=== PATIENT | male | born 1955 | race Caucasian/White ===

== ENCOUNTER 2016-04-28 01:39 | Inpatient (IN) | payer OTHER ==
[~2016-04-28] VITALS: Ht 167.6 cm; Wt 92.5 kg
[~2016-04-28 01:39] MED LIST: ABILIFY10 M1; GABAPENTIN300 M2; MELOXICAM15 M1; PROZAC40 M1 PO
[2016-04-28] MEDS ORDERED: MIRALAX17 G1 PO (10:42)
[2016-04-28] MEDS ORDERED: MS CONTIN30 M1 PO (10:42)
[2016-04-28] MEDS ORDERED: DILAUDID4 M1 PO (10:42)
[2016-04-28] MEDS ORDERED: COLACE100 M1 PO (10:42)
[2016-04-28] MEDS ORDERED: PRILOSEC OTC20 M1 PO (10:42)
[2016-04-28] MEDS ORDERED: ASPIRIN EC325 M2 PO (10:42)
--- NOTE | 2016-04-28 10:45 | Admission Core Measures ---
Admission Meds I reviewed the following Meds: Current Medications Sig/Moy Start time Last Medication Dose Stop Time Status Admin Acetaminophen 975 MG ONCE 04/28 0000 NR (Tylenol) 04/28 2358 Aripiprazole 10 MG DAILY 04/28 1000 AC (Abilify) Cefazolin Sodium 2,000 MG ONCE 04/28 0000 NR (Kefzol-Ancef Inj) 04/28 2358 Fluoxetine HCl 80 MG AT BEDTIME 04/28 2200 AC (Prozac) Gabapentin 300 MG DAILY 04/28 1000 AC (Neurontin) Oxycodone HCl 10 MG ONCE 04/28 0000 NR (Roxicodone) 04/28 2358 Ropivacaine 500 ML ONCE ONE 04/28 0830 AC (NAROPIN) 04/30 0209 ON-Q Ball 1 BAG Acute Coronary Syndrome Inclusion Criteria ACS Diagnosis No Inpatient Core Measures LDL Reminder: If No, please order W/I first 24hr of stay Congestive Heart Failure Inclusion Criteria CHF Diagnosis No Cerebrovascular accident Inclusion Criteria CVA/TIA Diagnosis No Inpatient Core Measures Bedside Swallow Eval Reminder: If BSE failed, place ST order Antithrombotic Reminder: Order Antithrombotic Medication by end of day 2 Antithrombotic Reminder: Document Reason Antithrombotic Not ordered by end of day 2 AFIB/Flutter Reminder: If Present, add to problem list AFIB/Flutter Reminder: Order Anticoag Medication for pts with AFIB/Flutter Atherosclerosis Reminder: If Present, add to problem list LDL Reminder: If No, please order W/I first 24hr of stay PT Order Reminder: If No, please order Venous thromboembolism Inpatient Core Measures VTE Risk Factors: Age > 40, Surgery VTE Prophylaxis [facility] prophylaxis d/t No contraindications No VTE Pharm Prophylaxis d/t No contraindications Inclusion Criteria - Per Current guidelines, there needs to be overlap - treatment for the first 5 days of Warfarin therapy. - Parenteral Anticoagulation (IV or SC) needs to be - given along with Warfarin therapy. VTE Diagnosis No VTE Type NONE VTE Confirmed by (Test) NONE Problem List As ranked by this Provider includes Assessment & Plan 1. Unilateral primary osteoarthritis, right knee HOME MEDS Home Med List Aspirin (Ecotrin*) 325 MG TABLET.DR 1 TAB PO BID ANTICOAGULATION Docusate Sodium (Colace) 100 MG CAPSULE 1 CAP PO BID CONSTIPATION Fluoxetine HCl (Prozac) 40 MG CAPSULE 2 TAB PO NIGHTLY DEPRESSION (Reported) Hydromorphone HCl (Dilaudid) 4 MG TABLET 1-2 TAB PO Q4-6H PRN PAIN Morphine Sulfate (Ms Contin) 30 MG TABLET.ER 1 TAB PO BID PAIN Omeprazole Magnesium (Prilosec Otc) 20 MG TABLET.DR 1 TAB PO DAILY GI PROTECTION Polyethylene Glycol 3350 (Miralax) 17 GRAM POWD.PACK 1 PAC PO DAILY CONSTIPATION
--- NOTE | 2016-04-28 10:45 | Patient Discharge Instructions ---
Discharge Instructions General Discharge Information You were seen/treated for: Right knee pain You had these procedures: Right total knee replacement Watch for these problems: Increasing pain, redness, warmth, swelling. Drainage of any type from incision. Inability to bear weight on right leg. Fever greater than 101.5. Do not soak the wound: No No bath, but you may shower: Yes Other wound care: Keep wound clean and dry Special Instructions: Incision: Dry dressing. May shower. No baths. No ointments of any kind. Ice as needed. Bowel regimen: Colace and or MiraLAX Weight-bearing as tolerated Follow-up with Dr. Lozoya in 6 weeks. Call office for fevers greater than 101.5, excessive drainage or inability to bear weight on operative extremity. Visiting nurse will change dressing. Diet Continue normal diet: Yes Recommended Diet: Regular Additional DIET Information: Advance as tolerated Activity Full Activity/No Limits: No Activity Self Limited: Yes Pounds, do NOT lift more than: 10 Additional ACTIVITY Info: Weight-bear as tolerated on right leg Acute Coronary Syndrome Inclusion Criteria At DC or during hospital stay patient has or had the following: ACS DIAGNOSIS No Discharge Core Measures Meds if any: Prescribed or Continued at Discharge Meds if any: NOT Prescribed or Continued at Discharge Congestive Heart Failure Inclusion Criteria At DC or during hospital stay patient has or had the following: CHF DIAGNOSIS No Discharge Core Measures Meds if any: Prescribed or Continued at Discharge Meds if any: NOT Prescribed or Continued at Discharge Cerebrovascular accident Inclusion Criteria At DC or during hospital stay patient has or had the following: CVA/TIA Diagnosis No Discharge Core Measures Meds if any: Prescribed or Continued at Discharge Meds if any: NOT Prescribed or Continued at Discharge Venous thromboembolism Inclusion Criteria VTE Diagnosis No VTE Type NONE VTE Confirmed by (Test) NONE Discharge Core Measures - Per Current guidelines, there needs to be overlap - treatment for the first 5 days of Warfarin therapy. - If discharged on Warfarin prior to 5 days of - overlap therapy, the patient will need to be - assessed for post discharge needs including - *Post discharge parental anticoagulation - *Warfarin and/or parental anticoagulation education - *Follow up date to check INR post discharge At least 5 days overlap therapy as Inpatient No Meds if any: Prescribed or Continued at Discharge Note: Overlap Therapy is Warfarin and Anticoagulant Meds if any: NOT Prescribed or Continued at Discharge
--- NOTE | 2016-04-28 10:49 | Surgical Discharge Summary ---
Visit Information Visit Dates Admission Date: 04/28/16 Discharge Date: 04/30/2016 History of Present Illness Chief Complaint: Right knee pain Surgical History Pertinent Surgical History: non-contributory Review of Systems: See H&P Hospital Course Course Attending Physician: VLAD ZAFAR MD Primary Care Physician: SHAILESH FLAHERTY,[facility] [address] Course: Patient was admitted to the hospital on 04/28/2016 for an elective right total knee replacement. He tolerated the procedure well. He was transferred to a general surgical floor. His diet was advanced and tolerated. His vital signs were stable and within normal limits. He voided spontaneously. His pain was well controlled. He was evaluated and treated by physical therapy. He was deemed appropriate for discharge. Allergies: Coded Allergies: Penicillins (Severe, SKIN PEEL 04/27/16) Disposition Summary Disposition Principal Diagnosis: Right knee unilateral primary osteoarthritis Additional Diagnosis: None Discharge Disposition: home health services Discharge Instructions General Discharge Information Code Status: Full Code Patient's Diet: Regular, advance as tolerated Patient's Activity: Weight-bear as tolerated Follow-Up Instructions/Appts: Incision: Dry dressing. May shower. No baths. No ointments of any kind. Ice as needed. Bowel regimen: Colace and or MiraLAX Weight-bearing as tolerated Follow-up with Dr. Zafar in 6 weeks. Call office for fevers greater than 101.5, excessive drainage or inability to bear weight on operative extremity. Visiting nurse will change dressing. Medications at Discharge Discharge Medications: Continue taking these medications: Gabapentin (Gabapentin) 300 MG CAPSULE Meloxicam (Meloxicam) 15 MG TABLET Fluoxetine HCl (Prozac) 40 MG CAPSULE 2 Tablet ORAL NIGHTLY Aripiprazole (Abilify) 10 MG TABLET Start taking the following new medications: Omeprazole Magnesium (Prilosec Otc) 20 MG TABLET.DR 1 Tablet ORAL DAILY Qty = 30 No Refills Aspirin (Ecotrin*) 325 MG TABLET.DR 1 Tablet ORAL TWICE DAILY Qty = 60 No Refills Docusate Sodium (Colace) 100 MG CAPSULE 1 Capsule ORAL TWICE DAILY Qty = 14 No Refills Instructions: DISCONTINUE USE IF YOU DEVELOP LOOSE STOOL OR DIARRHEA Polyethylene Glycol 3350 (Miralax) 17 GRAM POWD.PACK 1 Packet ORAL DAILY Qty = 7 No Refills Instructions: dissolve in water, DISCONTINUE USE IF YOU DEVELOP LOOSE STOOL OR DIARRHEA Hydromorphone HCl (Dilaudid) 2 MG TABLET 1-2 Tablet ORAL EVERY 4-6 HOURS as needed for PAIN Qty = 36 No Refills Morphine Sulfate (Ms Contin) 15 MG TABLET.ER 1 Tablet ORAL THREE TIMES DAILY Qty = 9 No Refills
--- NOTE | 2016-04-28 16:01 | Operative Report ---
Operative/Inv Procedure Report Surgery Date: 04/28/16 Name of Procedure: 1. Right total knee replacement 2. Left knee cortisone injection Pre-Operative Diagnosis: Bilateral primary knee DJD Post-Operative Diagnosis: Same Estimated Blood Loss: 50ml to 100ml Surgeon/Financial Reporting Analyst: CHARISMA FLAHERTY,VLAD Barragan Anesthesia: general endotracheal tube Operative/Procedure Note Note: Description of Procedure: The patient was taken to the operating room and positively identified. After induction of general anesthesia and administration of appropriate pre-operative antibiotics, the patient was positioned supine on the operating room table and all bony prominences were well padded. The left knee was prepped sterilely and injected with a mixture of 2 mL of Depo- Medrol and 8 mL of half percent Marcaine. A Band-Aid was placed over the injection site. A well-padded pneumatic tourniquet was placed on the right upper thigh. After performing a surgical timeout, the right lower extremity was prepped and draped in the usual sterile fashion. After exsanguination with Esmarch the tourniquet was inflated to 250mm of mercury. A standard medial parapatellar approach was made to the knee. This was carried down through skin and subcutaneous tissue to the level of the fascia. Meticulous hemostasis was maintained with Bovie electrocautery. The extensor mechanism and patellar retinaculum were opened sharply and the patella was everted. The infrapatellar fat was resected in order to improve exposure. Osteophytes were trimmed from the patella and femoral condyles and the patella was re-everted and tucked laterally. A medial release was performed and the cruciate ligaments were resected. The tibia was then subluxed anteriorly. It was noted that due to his extremely severe preoperative varus deformity that there was a tremendous bone loss at the posterior medial tibial plateau. This required a large tibial resection in order to create a stable bone platform for the tibial component. Further more extensive stripping of the medial collateral ligament was required in order to correct his varus deformity. Utilizing the appropriate extra-medullary guide, the proximal tibia was trimmed perpendicular to the long axis of the tibial shaft. Attention was then turned to the femur. After opening the medullary canal, the distal femoral cut was made in 6 degrees of valgus utilizing the appropriate intra-medullary guide. The extension gap was checked and found to be appropriate. The femur was then sized and the remainder of the femoral cuts were made with a size 4 4-in-1 femoral cutting guide. The flexion gap was checked and found to be symmetric and appropriate. The knee was then trialed with a size 4 femoral component, a size 3 tibial component and a size 16 mm TS polyethylene insert. The patella was trimmed to accept an A 35 patella. This yielded excellent range of motion, stability and patellar tracking. All trial components were removed and the knee was copiously irrigated with sterile saline. All components were cemented into place with [place] Simplex cement. All the components were of the FabriQate Triathlon knee system of the above stated sizes. The knee was again irrigated after cementation. A medium Hemovac drain was left in the intra-articular space. The extensor mechanism and patellar retinaculum were repaired using interrupted #1 vicryl suture. The skin was re-approximated with 2-0 vicryl and closed with issa. A sterile dressing was applied, the tourniquet was deflated, the patient was awakened and taken to the recovery room in satisfactory condition.
--- NOTE | 2016-04-28 16:30 | NUR ---
ARRIVED TO FLOOR FROM PACU. A & O X 3. VSS. C/O MINIMAL PAIN TO RIGHT KNEE. ON-Q PUMP IN PLACE. HEMOVAC TO RIGHT KNEE. AMBULATED TO BED WITH PHYSICAL THERAPY USING ROLLING WALKER. POST OP DSG IN PLACE. +CMS. ORIENTED TO CALL SYSTEM. IV ACCESS ESTABLISHED AND FLUIDS INFUSING. WILL MONITOR.
[2016-04-28 16:38] VITALS: BP 166/90
--- NOTE | 2016-04-28 16:53 | PN- Orthopedic ---
Subjective Subjective: POST-OP NOTE: Reports his knee discomfort is better than what he had anticipated. Out of bed already without difficulty. No dizziness. No shortness of breath. No chest pains. Tolerating clears. Due to void shortly. Objective Vital Signs and I&Os Intake & Output 04/28 1600 04/28 0800 04/28 0000 04/27 1600 04/27 0800 04/27 0000 Intake Total Output Total Balance Patient 204 lb Weight pacu vitals reviewed Physical Exam: General - alert & oriented x 3. comfortable. no acute distress. Lungs - clear bilaterally. no w/r/r. Cardiac - s1s2. reg. Abdomen - soft. nontender. Extremities - warm bilaterally. right knee dressing c/d/i. on q in place. nvi. calves soft and nontender. Assessment/Plan Assessment/Plan This 60 year old white male hx nimco (cpap), hx seizures, anxiety/depression, s/p nephrectomy, is POD#0 s/p right total knee replacement, left knee cortisone injection advance diet as tolerated continue iv fluids overnight due to void shortly PT eval, wbat on q in place until POD#2 hold toradol given s/p nephrectomy status f/u am labs pain control as ordered asa bid - dvt ppx ancef x 2 epifanio-operatively will d/w Core Measures/Miscellaneous Venous Thromboembolism VTE Risk Factors: Age > 40, Surgery VTE Contraindications: No Contraindications VTE Prophylaxis Ordered Inpt: [facility] VTE Diagnosis: No VTE Type: NONE VTE Confirmed by (Test): NONE Beta Kym Is Beta Kym a Home Med? No Antibiotics Is Patient on Antibiotics? Yes If Yes: prophylaxis
[2016-04-28 18:06] VITALS: BP 150/70
[2016-04-28 20:06] VITALS: BP 148/60
[2016-04-28 22:11] VITALS: BP 142/60
[2016-04-29 02:00] VITALS: BP 140/70
--- NOTE | 2016-04-29 06:44 | PN- Orthopedic ---
Subjective Subjective: Patient reporting increased pain overnight. Has been oob to ambulate. Has been voiding. Denies chest pain, shortness of breath, and difficulty breathing. Denies nausea and vomitting. Objective Vital Signs and I&Os Vital Signs Date Time Temp Pulse Resp B/P Pulse O2 O2 Flow FiO2 Ox Delivery Rate 04/29 0200 97.6 89 20 140/70 94 CPAP 04/29 0000 CPAP 04/28 2211 98.6 96 20 142/60 95 Room Air 04/28 2006 98.4 90 20 148/60 94 Room Air 04/28 1806 98.1 91 20 150/70 95 Room Air 04/28 1638 99.5 86 18 166/90 97 Room Air Intake & Output 04/29 0804/29 0000 04/28 1600 04/28 0800 04/28 0000 04/27 1600 Intake Total 540 Output Total 1650 780 Balance -1650 -240 Intake, IV 300 Intake, Oral 240 Output, 80 Drainage Output, Urine 1650 700 Patient 204 lb 204 lb Weight Physical Exam: General: Alert and oriented x3, no acute distress Cardiac: RRR, s1s2 Pulmonary: CTA bilaterally Abdomen: Non-tender, non-distended Extremities: Moves all extremities, distal sensation intact. Motor 5/5 in plantar and dorsi flexion. Skin warm and well perfused. DP pulses palpable bilaterally. Bilateral calves soft and non-tender. Surgical site: Right knee. Dressing dry and intact. SANTOSH with sanguinous drainage, dc'd this am. ON Q in place, no evidence of bleeding around site or medication leak. Assessment/Plan Assessment/Plan This is a 60 year old male POD 1, s/p right tkr, pmh sig for nimco and spinal stenosis, complaining of pain post op. -Increase dose of dilaudid to 4-8 mg po q4p while in house -D/C iv fluids, d/c iv morphine -D/C drain today -OOB with PT today -Bowel regimen to continue -Plan for d/c on Q tomorrow -Dispo planning home in 1-2 days Core Measures/Miscellaneous Venous Thromboembolism VTE Risk Factors: Age > 40, Surgery VTE Contraindications: No Contraindications VTE Prophylaxis Ordered Inpt: [facility] VTE Diagnosis: No VTE Type: NONE VTE Confirmed by (Test): NONE Beta Kym Is Beta Kym a Home Med? No Antibiotics Is Patient on Antibiotics? Yes If Yes: prophylaxis
[2016-04-29 06:50] VITALS: BP 154/50
[2016-04-29 08:03] LABS: ABSOLUTE BASOPHIL COUNT 0 /CUMM (0.0-0.2); ABSOLUTE EOSINOPHIL COUNT 0 /CUMM (0.0-0.7); ABSOLUTE GRANULOCYTE CT 18.2 /CUMM (1.4-6.5); ABSOLUTE LYMPH COUNT 1.2 /CUMM (1.2-3.4); ABSOLUTE MONOCYTE COUNT 2.5 /CUMM (0.10-0.60); BASOPHIL % 0.1 % (0.0-2.0); EOSINOPHIL % 0 % (0-5); GRANULOCYTE % 82.9 % (42.2-75.2); HEMATOCRIT 36.7 % (42-52); MEAN CORPUSCULAR HGB 30.8 PG (27.0-31.0); MEAN CORPUSCULAR HGB CONC 33.1 G/DL (33.0-37.0); MEAN CORPUSCULAR VOLUME 92.8 FL (80.0-94.0); MEAN PLATELET VOLUME 8.3 FL (7.4-10.4); PLATELET COUNT 343 /CUMM (130-400); RBC DISTRIBUTION WIDTH 14.4 % (11.5-14.5); RED BLOOD CELL CT 3.96 /CUMM (4.70-6.10)
--- NOTE | 2016-04-29 10:00 | NUR ---
ON-Q PUMP SITE ASSESSED THIS AM. SITE INTACT. CLAMP OPEN TO MEDICATION. MEDICATION BALL SEEMS TO BE INFLATED IT WAS WHEN PT WAS FIRST ADMITTED. ?PUMP NOT WORKING. REPORTED TO MARIANA CHEUNG. ANETHESIA IN TO ASSESS PT TO CHECK ON-Q PUMP STATUS. PER ANESTHESIA, PT SEEMS TO BE HAVING RELIEF IF THE PUMP IS WORKING AND NO INTERVENTION IS NECESSARY. PUMP ASSESSED LATER IN SHIFT AND DOES NOT APPEAR TO BE REDUCING IN SIZE.
[2016-04-29 14:43] VITALS: BP 142/66
[2016-04-29 23:30] VITALS: BP 140/60
[2016-04-30 07:40] VITALS: BP 138/78
[2016-04-30 08:34] LABS: ABSOLUTE BASOPHIL COUNT 0.1 /CUMM (0.0-0.2); ABSOLUTE EOSINOPHIL COUNT 0.1 /CUMM (0.0-0.7); ABSOLUTE GRANULOCYTE CT 15.2 /CUMM (1.4-6.5); ABSOLUTE LYMPH COUNT 2.8 /CUMM (1.2-3.4); ABSOLUTE MONOCYTE COUNT 2.5 /CUMM (0.10-0.60); BASOPHIL % 0.3 % (0.0-2.0); EOSINOPHIL % 0.5 % (0-5); GRANULOCYTE % 73.5 % (42.2-75.2); HEMATOCRIT 33.1 % (42-52); MEAN CORPUSCULAR HGB 31.1 PG (27.0-31.0); MEAN CORPUSCULAR HGB CONC 33.8 G/DL (33.0-37.0); MEAN CORPUSCULAR VOLUME 92.2 FL (80.0-94.0); MEAN PLATELET VOLUME 8.3 FL (7.4-10.4); PLATELET COUNT 333 /CUMM (130-400); RBC DISTRIBUTION WIDTH 14.5 % (11.5-14.5); WHITE BLOOD CELL COUNT 20.7 /CUMM (4.8-10.8)
--- NOTE | 2016-04-30 10:17 | PN- Orthopedic ---
Subjective Subjective: NAEO. Patient without new c/o. Pain well controlled. Denies numbness/tingling in RLE. Tolerating diet without n/v. +flatus. OOB with PT. Denies CP/SOB. Objective Vital Signs and I&Os Vital Signs Date Time Temp Pulse Resp B/P Pulse O2 O2 Flow FiO2 Ox Delivery Rate 04/30 0740 98.0 82 18 138/78 96 Room Air 04/29 2330 98.4 86 18 140/60 95 Room Air 04/29 1443 97.9 84 18 142/66 95 Room Air / 1030 95 Room Air Intake & Output 04/30 1600 04/30 0800 04/30 0000 / 1600 04/29 0800 04/29 0000 Intake Total 944 869 1981 900 540 Output Total 700 1690 780 Balance 100 100 500 -790 -240 Intake, IV 600 300 Intake, Oral 566 464 9707 300 240 Number 0 Bowel Movements Output, 40 80 Drainage Output, Urine 700 1650 700 Patient 204 lb Weight Physical Exam: General: NAD, comfortable, A&Ox3 Chest: NRD, breathing comfortably on RA. RRR. Abdomen: soft, nontender, nondistended. Ext: Right knee incision intact with issa withoutsigns of infection. No calve swelling/TTP, neurovascularly intact bilateral lower extremities Current Medications: Current Medications Sig/Moy Start time Last Medication Dose Route Stop Time Status Admin Acetaminophen 650 MG Q4P PRN 04/29 0700 AC PO Aripiprazole 10 MG DAILY 04/28 1700 AC 04/29 PO 1017 Aspirin 325 MG BID 04/28 2200 AC 04/29 PO 2121 Docusate Sodium 100 MG BID 04/28 2200 AC 04/29 PO 2121 Fluoxetine HCl 80 MG AT BEDTIME 04/28 2200 AC 04/29 PO 2120 Gabapentin 300 MG Q8 04/28 2200 AC 04/30 PO 0634 Hydromorphone HCl 2 MG Q4P PRN 04/29 1000 AC 04/30 PO 0634 Hydromorphone HCl 4 MG Q4P PRN 04/28 1630 AC 04/29 PO 1207 Morphine Sulfate 15 MG Q8 04/29 0955 AC 04/30 PO 0634 Omeprazole 40 MG DAILY AC 04/29 0700 AC 04/30 PO 0634 Ondansetron HCl 4 MG Q6P PRN 04/28 1630 AC IV Patient Medication 1 ED .STK-MED ONE 04/29 1354 HI Teaching ED 04/29 1355 Polyethylene Glycol 17 GM DAILY 04/29 1000 AC 04/29 PO 1020 Promethazine HCl 12.5 MG Q6P PRN 04/28 1630 AC IV 05/05 1029 Results Last 48 Hours of Labs: Laboratory Tests 04/30 04/29 0749 0625 Chemistry Sodium (137 - 145 mmol/L) 136 L Potassium (3.5 - 5.1 mmol/L) 4.5 Chloride (98 - 107 mmol/L) 104 Carbon Dioxide (22 - 30 mmol/L) 23 Anion Gap (5 - 16) 8 BUN (9 - 20 mg/dL) 14 Creatinine (0.7 - 1.2 mg/dL) 1.0 Estimated GFR (>60 ml/min) > 60 BUN/Creatinine Ratio (7 - 25 %) 14.0 Hematology CBC w Diff NO MAN DIFF REQ NO MAN DIFF REQ WBC (4.8 - 10.8 /CUMM) 20.7 H 22.0 H RBC (4.70 - 6.10 /CUMM) 3.60 L 3.96 L Hgb (14.0 - 18.0 G/DL) 11.2 L 12.2 L Hct (42 - 52 %) 33.1 L 36.7 L MCV (80.0 - 94.0 FL) 92.2 92.8 MCH (27.0 - 31.0 PG) 31.1 H 30.8 RDW (11.5 - 14.5 %) 14.5 14.4 Plt Count (130 - 400 /CUMM) 333 343 MPV (7.4 - 10.4 FL) 8.3 8.3 Gran % (42.2 - 75.2 %) 73.5 82.9 H Lymphocytes % (20.5 - 51.1 %) 13.4 L 5.5 L Monocytes % (1.7 - 9.3 %) 12.3 H 11.5 H Eosinophils % (0 - 5 %) 0.5 0 Basophils % (0.0 - 2.0 %) 0.3 0.1 Absolute Granulocytes (1.4 - 6.5 /CUMM) 15.2 H 18.2 H Absolute Lymphocytes (1.2 - 3.4 /CUMM) 2.8 1.2 Absolute Monocytes (0.10 - 0.60 /CUMM) 2.5 H 2.5 H Absolute Eosinophils (0.0 - 0.7 /CUMM) 0.1 0 Absolute Basophils (0.0 - 0.2 /CUMM) 0.1 0 PUBS MCHC (33.0 - 37.0 G/DL) 33.8 33.1 Assessment/Plan Assessment/Plan 60yo M POD#2 s/p right total knee arthroplasty. AVSS, patient progressing well. - Pain control - PRN zofran - Bowel regimen - DVT PPx - I/O's - OOB and ambulate with PT, WBAT - Continue diet - DC home tomorrow with Home PT - Discussed with attending Core Measures/Miscellaneous Venous Thromboembolism VTE Risk Factors: Age > 40, Surgery VTE Contraindications: No Contraindications VTE Diagnosis: No VTE Type: NONE VTE Confirmed by (Test): NONE Beta Kym Is Beta Kym a Home Med? No Antibiotics Is Patient on Antibiotics? No
[2016-04-30] MEDS ORDERED: DILAUDID2 M1 PO (14:03)
[2016-04-30] MEDS ORDERED: MS CONTIN15 M2 PO (14:03)
[2016-04-30 14:09] VITALS: BP 140/80
== END 2016-04-30 16:13 | disposition home health service (06) | DRG 470 ==
LOC: ENRESERVTM → ENRESERVDT → CANRESERV → SDA 01:39 → ENPENDDIS 01:39 → SDA 13:46 → 2NA 16:26
PROVIDERS: Nurse Practitioner; ADMIT Orthopaedic Surgery
PROC: 3E0U3BZ Introduction of Anesthetic Agent into Joints, Percutaneous Approach (ICD-10-PCS; principal; 2016-04-28)
PROC: 3E0U33Z Introduction of Anti-inflammatory into Joints, Percutaneous Approach (ICD-10-PCS; principal; 2016-04-28)
PROC: 0SRC0J9 Replacement of Right Knee Joint with Synthetic Substitute, Cemented, Open Approach (ICD-10-PCS; principal; 2016-04-28)
DX: M17.0 Bilateral primary osteoarthritis of knee (principal); F32.9 Major depressive disorder, single episode, unspecified; E78.5 Hyperlipidemia, unspecified; E66.9 Obesity, unspecified; Z68.30 Body mass index [BMI] 30.0-30.9, adult; G47.33 Obstructive sleep apnea (adult) (pediatric); Z87.891 Personal history of nicotine dependence
CPT/HCPCS: 2NASP; 82436; 88305; 97110-GO; 97116-GO; 97161-GP; 97530-GO; C1713; C9399; J0401; J0690; J1030; J1100; J1885; J2405; J2550; J2795; J7042; Q2036

== ENCOUNTER 2017-04-06 03:40 | Inpatient (IN) | payer OTHER ==
[~2017-04-06] VITALS: Ht 167.6 cm; Wt 96.2 kg
[~2017-04-06 03:40] MED LIST changes: +ASPIRIN EC325 M2 PO; +COLACE100 M1 PO; +DILAUDID2 M1 PO; +DILAUDID4 M1 PO; +MIRALAX17 G1 PO; +MS CONTIN15 M2 PO; +MS CONTIN30 M1 PO; +PRILOSEC OTC20 M1 PO
[2017-04-06 07:54] LABS: ABSOLUTE BASOPHIL COUNT 0.1 /CUMM (0.0-0.2); ABSOLUTE EOSINOPHIL COUNT 0.6 /CUMM (0.0-0.7); ABSOLUTE LYMPH COUNT 2.2 /CUMM (1.2-3.4); HEMATOCRIT 43.1 % (42-52)
[2017-04-06 07:56] LABS: ABSOLUTE GRANULOCYTE CT 5.4 /CUMM (1.4-6.5); ABSOLUTE MONOCYTE COUNT 0.8 /CUMM (0.10-0.60); BASOPHIL % 1.1 % (0.0-2.0); EOSINOPHIL % 6.4 % (0-5); GRANULOCYTE % 59.2 % (42.2-75.2); MEAN CORPUSCULAR HGB CONC 33.5 G/DL (33.0-37.0); MEAN CORPUSCULAR VOLUME 92.5 FL (80.0-94.0); MEAN PLATELET VOLUME 8.2 FL (7.4-10.4); PLATELET COUNT 384 /CUMM (130-400); RBC DISTRIBUTION WIDTH 14.6 % (11.5-14.5); RED BLOOD CELL CT 4.66 /CUMM (4.70-6.10); WHITE BLOOD CELL COUNT 9.2 /CUMM (4.8-10.8)
--- NOTE | 2017-04-06 11:32 | Admission Core Measures ---
Acute Coronary Syndrome (CM) ACS Core Measures Acute Coronary Syndrome Diagnosis No Congestive Heart Failure (NEW) CHF Core Measures Congestive Heart Failure Diagnosis No Cerebrovascular Accident (NEW) CVA Core Measures CVA/TIA Diagnosis No Venous Thromboembolism VTE Core Carla (View Protocol) VTE Risk Factors Surgery No Mechanical VTE Prophylaxis d/t N/A MechProphylax Ordered No VTE Pharm Prophylaxis d/t NA PharmProphylax ordered Problem List As ranked by this Provider includes Assessment & Plan 1. Unilateral primary osteoarthritis, left knee HOME MEDS Home Med List Fluoxetine HCl (Prozac) 40 MG CAPSULE 2 TAB PO NIGHTLY DEPRESSION (Reported)
--- NOTE | 2017-04-06 11:35 | Surg Short-stay <48hrs Dis Sum ---
Visit Information Visit Dates Admission Date: 04/06/17 Discharge Date: 04/08/17 Surgical Short Stay DC Summary Admission Diagnosis: LEFT KNEE PRIMARY OSTEOARTHRITIS Final Diagnosis: SAME, SP LEFT TOTAL KNEE REPLACEMENT Procedure(s): LEFT TOTAL KNEE REPLACEMENT Summary/Significant Findings: Patient was admitted to the hospital for an elective total joint replacement. Procedure was tolerated well and patient was transferred to a general surgical floor. Diet was advanced and tolerated. Physical therapy performed evaluation and treatment. At time of hospital discharge, vital signs were stable, neurovascular status was intact, and pain was controlled with the use of oral pain medications. Condition at Discharge: STABLE Discharge Disposition: home or self care Discharge instructions provided to patient/family: Yes Post discharge follow-up plan: Follow up with Dr. Lozoya in 6 weeks from date of surgery. Please call his office to schedule/confirm this appointment. Copies to: Richard FLAHERTY,Christiano
--- NOTE | 2017-04-06 11:38 | Patient Discharge Instructions ---
Discharge Instructions General Discharge Information You were seen/treated for: LEFT KNEE OSTEOARTHRITIS You had these procedures: LEFT TOTAL KNEE REPLACEMENT Watch for these problems: Increasing pain despite the use of pain medication Increasing redness, warmth or swelling Drainage of any type from incision Inability to bear weight on operative leg Persistent nausea and vomiting Fever greater than 101.5 degrees Other wound care: Please keep wound clean and dry. No ointments or lotions of any type on or near incision. Your dressing will be changed by your nurse on the second day after your surgery. Daily dry dressing changes are recommended each day thereafter. Do not soak your wound- no tub baths/swimming. You may shower 48hr after surgery. Special Instructions: Aspirin: You are taking this medication to help prevent blood clot formation. Please take with food to protect your stomach lining. Please take as directed. Constipation: Pain medication can cause constipation. It is recommended that you take Colace and Miralax each day. Discontinue this medication if you develop loose stool or diarrhea. If you wish to continue this medication, it is available over the counter. If you are unable to move your bowels or unable to pass gas and are developing bloating, nausea, or vomiting as a result, please contact your doctor. Diet Recommended Diet: Regular Activity Activity Limited to: Weight bear as tolerated Additional ACTIVITY Info: use assistive devices as needed Acute Coronary Syndrome Inclusion Criteria At DC or during hospital stay patient has or had the following: ACS DIAGNOSIS No Discharge Core Measures Meds if any: Prescribed or Continued at Discharge Meds if any: NOT Prescribed or Continued at Discharge Congestive Heart Failure Inclusion Criteria At DC or during hospital stay patient has or had the following: CHF DIAGNOSIS No Discharge Core Measures Meds if any: Prescribed or Continued at Discharge Meds if any: NOT Prescribed or Continued at Discharge Cerebrovascular accident Inclusion Criteria At DC or during hospital stay patient has or had the following: CVA/TIA Diagnosis No Discharge Core Measures Meds if any: Prescribed or Continued at Discharge Meds if any: NOT Prescribed or Continued at Discharge Venous thromboembolism Inclusion Criteria VTE Diagnosis No VTE Type NONE VTE Confirmed by (Test) NONE Discharge Core Measures - Per Current guidelines, there needs to be overlap - treatment for the first 5 days of Warfarin therapy. - If discharged on Warfarin prior to 5 days of - overlap therapy, the patient will need to be - assessed for post discharge needs including - *Post discharge parental anticoagulation - *Warfarin and/or parental anticoagulation education - *Follow up date to check INR post discharge At least 5 days overlap therapy as Inpatient No Meds if any: Prescribed or Continued at Discharge Note: Overlap Therapy is Warfarin and Anticoagulant Meds if any: NOT Prescribed or Continued at Discharge
[2017-04-06] MEDS ORDERED: MIRALAX17 G1 PO ×2 (11:42→11:44)
[2017-04-06] MEDS ORDERED: PROTONIX20 M1 PO ×2 (11:42→11:44)
[2017-04-06] MEDS ORDERED: MS CONTIN15 M3 PO ×2 (11:42→11:44)
[2017-04-06] MEDS ORDERED: COLACE100 M1 PO ×2 (11:42→11:44)
[2017-04-06] MEDS ORDERED: ASPIRIN EC325 M2 PO ×2 (11:42→11:44)
[2017-04-06] MEDS ORDERED: DILAUDID2 M1 PO ×2 (11:42→11:44)
--- NOTE | 2017-04-06 12:33 | Operative Report ---
Operative/Inv Procedure Report Surgery Date: 04/06/17 Name of Procedure: Left total knee replacement Pre-Operative Diagnosis: Primary left knee DJD Post-Operative Diagnosis: Same Estimated Blood Loss: 50ml to 100ml Surgeon/Business Computers Teacher: Devora FLAHERTY,Kg Blake Anesthesia: block Operative/Procedure Note Note: Description of Procedure: The patient was taken to the operating room and positively identified. After induction of spinal anesthesia and administration of appropriate pre-operative antibiotics, the patient was positioned supine on the operating room table and all bony prominences were well padded. A well-padded pneumatic tourniquet was placed on the left upper thigh. After performing a surgical timeout, the left lower extremity was prepped and draped in the usual sterile fashion. After exsanguination with Esmarch the tourniquet was inflated to 250mm of mercury. A standard medial parapatellar approach was made to the knee. This was carried down through skin and subcutaneous tissue to the level of the fascia. Meticulous hemostasis was maintained with Bovie electrocautery. The extensor mechanism and patellar retinaculum were opened sharply and the patella was everted. The infrapatellar fat was resected in order to improve exposure. Osteophytes were trimmed from the patella and femoral condyles and the patella was re-everted and tucked laterally. A medial release was performed and the cruciate ligaments were resected. The tibia was then subluxed anteriorly. Utilizing the appropriate extra-medullary guide, the proximal tibia was trimmed perpendicular to the long axis of the tibial shaft. Attention was then turned to the femur. After opening the medullary canal, the distal femoral cut was made in 6 degrees of valgus utilizing the appropriate intra-medullary guide. The extension gap was checked and found to be appropriate. The femur was then sized and the remainder of the femoral cuts were made with a size #4 4-in-1 femoral cutting guide. The flexion gap was checked and found to be symmetric and appropriate. The knee was then trialed with a size #4 femoral component, a size #4 tibial component and a size 13 mm polyethylene insert. The patella was trimmed to accept an A 32 patella. This yielded excellent range of motion, stability and patellar tracking. All trial components were removed and the knee was copiously irrigated with sterile saline. All components were cemented into place with Andres Simplex cement. All the components were of the [employer] knee system of the above stated sizes. The knee was again irrigated after cementation. The extensor mechanism and patellar retinaculum were repaired using interrupted #1 vicryl suture. The skin was re-approximated with 2-0 vicryl and closed with issa. A sterile dressing was applied, the tourniquet was deflated, the patient was awakened and taken to the recovery room in satisfactory condition.
[2017-04-06 15:00] VITALS: BP 150/68
--- NOTE | 2017-04-06 17:00 | PN- Orthopedic ---
Subjective Subjective: Post op check: Tolerated procedure. States that he is having some discomfort, anterior. Improved with po dilaudid. Has been oob ambulating. Has tolerated po. Has yet to void. No c/o chest pain, shortness of breath and difficulty breathing. No complaints of nausea and vomitting. Objective Vital Signs and I&Os Vital Signs Date Time Temp Pulse Resp B/P B/P Pulse O2 O2 Flow FiO2 Mean Ox Delivery Rate 04/06 1500 97.7 79 18 150/68 97 Room Air Intake & Output 04/06 1600 04/06 0800 04/06 0000 04/05 1600 04/05 0800 04/05 0000 Intake Total Output Total Balance Patient 212 lb 212 lb Weight Physical Exam: General: alert and oriented x3, no acute distress Cardiac: RRR, s1s2 Pulm: CTA bilaterally Abd: Non-tender, non-distended Extremities: Moves all extremities, distal sensation intact. Skin warm and well perfused. DP pulses palpable bialterally. Bilateral calves soft and non- tender Surgical site: Left knee, dressing dry and intact. ON Q in place. No sign of leak. Assessment/Plan Assessment/Plan This is a 61 year old male, POD 0, s/p L TKR -ASA 325 bid for dvt ppx -Ancef 2 g q8 for 2 additional doses -OOB, wbat -Diet as tolerated, dc iv fluids when taking adequate po -Follow up void -Follow up am labs -Bowel regimen colace and miralax -Will discuss poc with Dr. Lozoya Core Measures Venous Thromboembolism VTE Risk Factors Surgery No Mechanical VTE Prophylaxis d/t N/A MechProphylax Ordered No VTE Pharm Prophylaxis d/t NA PharmProphylax ordered
[2017-04-06 18:47] VITALS: BP 156/70
[2017-04-06 22:39] VITALS: BP 154/76
[2017-04-07 03:06] VITALS: BP 130/74
[2017-04-07 07:43] VITALS: BP 136/80
--- NOTE | 2017-04-07 08:58 | PN- Orthopedic ---
Subjective Subjective: PT SITTING UP IN BED. WAS CALLED BY RN FOR INCREASED PAIN ALTHOUGH PAIN HAS IMPROVED SINCE RECEIVING TORADOL. PT DENIES AND NUMBNESS OR TINGLING. TOLERATING DIET. VOIDING. AMBULATED. DENIES CHEST PAIN/SOB Objective Vital Signs and I&Os Vital Signs Date Time Temp Pulse Resp B/P B/P Pulse O2 O2 Flow FiO2 Mean Ox Delivery Rate 04/07 742 98.4 83 20 136/80 100 04/07 0306 97.6 80 20 130/74 96 Room Air 04/07 0000 99 CPAP 04/06 2239 98.5 83 20 154/76 94 Room Air 04/06 1847 97.9 81 20 156/70 96 Room Air 04/06 1500 97.7 79 18 150/68 97 Room Air Intake & Output 04/07 1600 04/07 0804/07 0000 04/06 1600 04/06 0800 04/06 0000 Intake Total 700 425 Output Total 550 650 Balance 150 -225 Intake, IV 600 225 Intake, Oral 100 200 Output, Urine 550 650 Patient 212 lb Weight Physical Exam: GEN- NAD RESP-CLEAR CARDIO-RRR ABD- ND, SOFT, NT EXT- LEFT LEG DRESSING CLEAN AND DRY. ON Q IN PLACE AND WORKING. DISTAL SENSORY AND MOTOR FUNCTION INTACT. 2+ PT PULSE. CALF APPPROPIATELY TENDER. NO PEDAL EDEMA Results Last 48 Hours of Labs: Laboratory Tests 04/07 04/06 0822 0714 Chemistry Sodium Pending Potassium Pending Chloride Pending Carbon Dioxide Pending Anion Gap Pending BUN Pending Creatinine Pending BUN/Creatinine Ratio Pending Hematology CBC w Diff Pending NO MAN DIFF REQ WBC (4.8 - 10.8 /CUMM) Pending 9.2 RBC (4.70 - 6.10 /CUMM) Pending 4.66 L Hgb (14.0 - 18.0 G/DL) Pending 14.4 Hct (42 - 52 %) Pending 43.1 MCV (80.0 - 94.0 FL) Pending 92.5 MCH (27.0 - 31.0 PG) Pending 31.0 MCHC (33.0 - 37.0 G/DL) Pending 33.5 RDW (11.5 - 14.5 %) Pending 14.6 H Plt Count (130 - 400 /CUMM) Pending 384 MPV (7.4 - 10.4 FL) Pending 8.2 Gran % (42.2 - 75.2 %) 59.2 Lymphocytes % (20.5 - 51.1 %) 24.5 Monocytes % (1.7 - 9.3 %) 8.8 Eosinophils % (0 - 5 %) 6.4 H Basophils % (0.0 - 2.0 %) 1.1 Absolute Granulocytes (1.4 - 6.5 /CUMM) 5.4 Absolute Lymphocytes (1.2 - 3.4 /CUMM) 2.2 Absolute Monocytes (0.10 - 0.60 /CUMM) 0.8 H Absolute Eosinophils (0.0 - 0.7 /CUMM) 0.6 Absolute Basophils (0.0 - 0.2 /CUMM) 0.1 Assessment/Plan Assessment/Plan 61YO M SP LEFT TKA POD1. STABLE PAIN MANAGEMENT- CONT ON Q UNTIL TOMORROW, TORADOL AND DILAUDID DVT PPX- ASA AND ALPS WBAT WITH PHYSICAL THERAPY REG DIET WILL HEP LOCK IV FU AM LABS Core Measures Venous Thromboembolism VTE Risk Factors Surgery No Mechanical VTE Prophylaxis d/t N/A MechProphylax Ordered No VTE Pharm Prophylaxis d/t NA PharmProphylax ordered
[2017-04-07 09:04] LABS: ABSOLUTE BASOPHIL COUNT 0 /CUMM (0.0-0.2); ABSOLUTE EOSINOPHIL COUNT 0 /CUMM (0.0-0.7); ABSOLUTE GRANULOCYTE CT 20.5 /CUMM (1.4-6.5); ABSOLUTE LYMPH COUNT 1.9 /CUMM (1.2-3.4); ABSOLUTE MONOCYTE COUNT 1.9 /CUMM (0.10-0.60); BASOPHIL % 0 % (0.0-2.0); EOSINOPHIL % 0.1 % (0-5); MEAN CORPUSCULAR HGB CONC 33.5 G/DL (33.0-37.0); MEAN CORPUSCULAR VOLUME 92.7 FL (80.0-94.0); MEAN PLATELET VOLUME 8.3 FL (7.4-10.4); PLATELET COUNT 342 /CUMM (130-400); RBC DISTRIBUTION WIDTH 13.9 % (11.5-14.5); RED BLOOD CELL CT 4.07 /CUMM (4.70-6.10)
[2017-04-07 11:12] LABS: HEMATOCRIT 37.7 % (42-52); WHITE BLOOD CELL COUNT 24.5 /CUMM (4.8-10.8)
[2017-04-07 14:07] VITALS: BP 120/80
[2017-04-07 22:36] VITALS: BP 150/70
[2017-04-08 06:33] VITALS: BP 130/70
--- NOTE | 2017-04-08 07:41 | PN- Orthopedic ---
Subjective Subjective: No acute overnight events reported. OnQ removed this am, patient complainng of pain. Denies chest pain, shortness of breath and difficutly breathing. Denies nausea and vomitting. Is voiding. Has been OOB. Objective Vital Signs and I&Os Vital Signs Date Time Temp Pulse Resp B/P B/P Pulse O2 O2 Flow FiO2 Mean Ox Delivery Rate 04/08 0633 98.6 80 20 130/70 97 Room Air 04/07 2236 97.5 85 20 150/70 94 Room Air 04/07 1407 98.5 80 20 120/80 97 08 1106 Room Air Room Air Intake & Output 04/08 0804/08 0000 04/07 1600 04/07 0800 04/07 0000 04/06 1600 Intake Total 120 1475 700 425 Output Total 550 650 Balance 120 1475 150 -225 Intake, IV 20 75 600 225 Intake, Oral 100 1400 100 200 Output, Urine 550 650 Patient 212 lb Weight Physical Exam: General: Alert and oriented x3, no acute distress Cardiac: RRR, s1s2 Pulm: CTA bilaterally ABD: Soft, non-tender, non-disteded Extremties: Moves all extremities, distal sensation grossly intact. Skin warm and well perfused. DP pulses palpable bialterally. Bialteral calves soft and non-tender. Surgical site: Left knee, dressing dry and intact. Assessment/Plan Assessment/Plan This is a 61 year old male, POD 2, s/p L TKR -Manage pain with po meds today, onQ out this am, may need to add long acting MS Contin -OOB, wbat, stairs with PT -Dressing to be changed today -Continue asa 325 bid for dvt ppx -Continue diet as tolerated -Anticipate dc to home tomorrow vs later today if pain controlled well enough with po Will discuss with Dr. Lozoya Core Measures Venous Thromboembolism VTE Risk Factors Surgery No Mechanical VTE Prophylaxis d/t N/A MechProphylax Ordered No VTE Pharm Prophylaxis d/t NA PharmProphylax ordered
[2017-04-08 14:38] VITALS: BP 150/80
== END 2017-04-08 16:43 | disposition home health service (06) | DRG 470 ==
LOC: SDA 03:40 → ENRESERV 13:34 → ENTRNSPT 14:39 → EDTRNSPT 14:48 → EDTRNSPTSTS 14:48 → 2NA 14:57 → CMPTRNSPT 15:06 → ENPENDDIS 04-08 12:34 → ENTRNSPT 04-08 16:15 → CMPTRNSPT 04-08 16:34 → 2NA 04-08 16:43
PROVIDERS: Orthopaedic Surgery; Physician Assistant Surgical
PROC: 0SRD0J9 Replacement of Left Knee Joint with Synthetic Substitute, Cemented, Open Approach (ICD-10-PCS; principal; 2017-04-06)
PROC: 3E0T3BZ Introduction of Anesthetic Agent into Peripheral Nerves and Plexi, Percutaneous Approach (ICD-10-PCS; 2017-04-06)
DX: M17.12 Unilateral primary osteoarthritis, left knee (principal); E66.9 Obesity, unspecified; G47.33 Obstructive sleep apnea (adult) (pediatric); Z68.34 Body mass index [BMI] 34.0-34.9, adult; E78.2 Mixed hyperlipidemia; Z87.891 Personal history of nicotine dependence
CPT/HCPCS: 2NASP; 36415; 82436; 97110-GO; 97116-GO; 97161-GP; 97530-GO; C1713; J0401; J0690; J2550; J2795; J3490; J7042